=== PATIENT | female | born 1985 | race Caucasian/White ===

== ENCOUNTER 2024-01-07 12:25 | Outpatient (CLI) | payer BC, SELFPAY ==
--- NOTE | ~2024-01-07 | US_ITS ---
EXAMINATION: US THYROID BIOPSY DATE: 01/07/2024 18:46 FOREST TECHNICIAN INDICATION: TIRADS 4 nodule to the right of midline within the isthmus TECHNIQUE: The procedure for biopsy of the thyroid nodule and its benefits and risks were explained to the patie nt. Potential risk included were not limited to bleeding, infection, and nondiagnostic specimen. The neck was prepped and draped in the usual sterile manner. 3 cc 1% lidocaine was used for local an esthesia. [6 passes were made with a 25G needle into the isthmus thyroid lesion. Appropriate needle location was documented with continuous sonographic guidance. The specimens were passed to the cyto pathologist in the room, who after appropriate staining deemed adequate. All needles were removed and Steri-Strips applied over the biopsy site. The patient tolerated the pr ocedure without immediate complications or complaints. FINDINGS: Subsequent images demonstrate needles advanced into the lesion for biopsy. IMPRESSION: 1. Technically successful ultrasound guided biopsy of a TIRADS 4 thyroid nodule. Please refer to pat hology report for final histologic analysis. Reviewed, dictated and finalized at location A. ST TECHNICIAN IMPRESSION: 1. Technically successful ultrasound guided biopsy of a TIRADS 4 thyroid nodule . Please refer to pathology report for final histologic analysis.
== END 2024-01-07 12:26 | disposition home or self-care (01) ==
LOC: ANHIMG 12:32
PROVIDERS: PCP Nurse Practitioner; Visit Provider Otolaryngology
DX: E07.89 Other specified disorders of thyroid (principal)
CPT/HCPCS: 10005; 88172; 88173; 88305